=== PATIENT | female | born 1960 | race Two or more races ===

== ENCOUNTER 2018-08-09 21:03 | Emergency (ER) | payer OTHER ==
[2018-08-09 21:17] VITALS: TEMP 98.2; BMI 24.5
--- NOTE | 2018-08-09 21:18 | PDOC ---
Rapid Medical Evaluation Time Seen by Provider: 08/09/18 21:04 Medical Evaluation: Allergies Allergy/AdvReac Type Severity Reaction Status Date / Time Penicillins Allergy Verified 06/19/16 12:41 08/09/18 21:04 I have performed a brief in-person evaluation of this patient. The patient presents with a chief complaint of: dizziness with nausea Pertinent physical exam findings: No nystagmus. Lungs CTAB. Gait steady. Able to perform rapid alternating movements without difficulty. I have ordered the following: Labs, ekg, head ct The patient will proceed to the ED for further evaluation. Discharge Disposition - Referrals Referrals: Zakia Feliciano [Primary Care Provider] - - Patient Instructions - Post Discharge Activity
[2018-08-09] MEDS ORDERED: MECLIZINE HCL 25 MG TABLET (FP) PO ONE (21:20)
[2018-08-09] MEDS ORDERED: MECLIZINE HCL 25 MG TABLET (FP) ONE (21:37)
[2018-08-09 21:48] LABS: HEMOGLOBIN 13.8 GM/dL (10.7-15.3); LYMPH % 29.3 % (8-40); MCH 26.4 pg (25.7-33.7); MCHC 32.9 g/dl (32.0-36.0); MEAN CELL VOLUME 80.3 fl (80-96); MEAN PLT VOLUME 9.4 fl (7.5-11.1); MONO % 7.4 % (3.8-10.2); NEUT % 60.3 % (42.8-82.8); PLATELET COUNT 245 K/MM3 (134-434); RBC 5.23 M/mm3 (3.60-5.2); RDW 14.3 % (11.6-15.6); WHITE BLOOD COUNT 7.6 K/mm3 (4.0-10.0)
--- NOTE | 2018-08-09 21:54 | PDOC ---
History of Present Illness <Bernie Sykes - Last Filed: 08/09/18 21:54> - General History Source: Patient Exam Limitations: No Limitations - History of Present Illness Initial Comments: 08/09/18 23:18 The patient is a 57 year old female, with a significant past medical history of HTN, Asthma, Osteoarthritis, DDD, hyperlipidemia, who presents to the emergency department with, elevated blood pressure, dizziness (room spinning), and lightheadedness. As per patient, she was at work when her symptoms onset this afternoon. She tested her blood pressure and obtained a reading of 165/105. She went home and retested her blood pressure and obtained a reading of 178/115. She reports associated nausea with 3 episodes of bilious emesis. She endorses left arm numbness, slurred speech, and blurred vision prompting her visit to the ER. The patient is compliant with her at home medications. She denies any recent head trauma or loss of consciousness. She denies recent fevers or chills. She denies recent diarrhea or constipation. She denies recent dysuria, frequency, urgency or hematuria. She denies recent chest pain or shortness of breath. Allergies: Penicillins. Past surgical history: Spinal Surgery Primary Care Physician: Dr. Zakia Feliciano <Kalpana Banegas - Last Filed: 08/10/18 01:33> - General Chief Complaint: Lightheaded Stated Complaint: BLOOD PRESSURE PROBLEMS Time Seen by Provider: 08/09/18 21:04 Past History - Past Medical History Anemia: No Asthma: Yes Cancer: No Cardiac Disorders: No CVA: No COPD: No CHF: No DVT: No Dementia: No Diabetes: No GI Disorders: No Disorders: No HTN: Yes Hypercholesterolemia: Yes Liver Disease: No Psychiatric Problems: No Seizures: No Thyroid Disease: No Lung CA: No - Surgical History Abdominal Surgery: No Appendectomy: No Cardiac Surgery: No Cholecystectomy: No Lung Surgery: No Neurologic Surgery: Yes (CERVICAL LAMINECTOMY X2) Orthopedic Surgery: Yes (RIGHT CARPAL TUNNEL) - Suicide/Smoking/Psychosocial Hx Smoking Status: No Smoking History: Never smoked Have you smoked in the past 12 months: No Number of Cigarettes Smoked Daily: 0 Hx Alcohol Use: No Drug/Substance Use Hx: No Substance Use Type: None Hx Substance Use Treatment: No <Bernie Sykes - Last Filed: 08/09/18 21:54> <Kalpana Banegas - Last Filed: 08/10/18 01:33> - Past Medical History Allergies/Adverse Reactions: Allergies Allergy/AdvReac Type Severity Reaction Status Date / Time Penicillins Allergy Verified 08/09/18 21:17 Home Medications: Ambulatory Orders Albuterol 0.083% Nebulizer Aleksandra [Ventolin 0.083% Nebulizer Soln -] 1 neb NEB Q4H PRN #1 vial 04/29/15 Albuterol Sulfate Inhaler - [Ventolin HFA Inhaler -] 1 inh IH Q6H PRN #1 inh Metoprolol Tartrate [Lopressor -] 50 mg PO DAILY #30 tablet 04/29/15 Acetaminophen [Tylenol .Regular Strength -] 650 mg PO Q6H PRN #0 tablet Amlodipine Besylate [Norvasc -] 5 mg PO DAILY tablet 06/21/16 Mag Hydrox/Al Hydrox/Simeth [Mylanta Oral Suspension -] 30 ml PO Q6HPO cup Ondansetron [Zofran -] 4 mg PO TID PRN #21 tablet 06/21/16 Pantoprazole Sodium [Protonix -] 20 mg PO BID #30 tablet.ec 06/21/16 Review of Systems - Review of Systems Able to Perform ROS?: Yes Comments:: 08/09/18 23:18 +GENERAL/CONSTITUTIONAL:ELevated blood pressure. No fever or chills. No weakness. +HEAD, EYES, EARS, NOSE AND THROAT: Blurred vision. No ear pain or discharge. No sore throat. CARDIOVASCULAR: No chest pain or shortness of breath. RESPIRATORY: No cough, wheezing, or hemoptysis. +GASTROINTESTINAL: Nausea. Vomiting. No diarrhea or constipation. GENITOURINARY: No dysuria, frequency, or change in urination. MUSCULOSKELETAL: No joint or muscle swelling or pain. No neck or back pain. SKIN: No rash +NEUROLOGIC: Left arm numbness. Slurred speech. No headache, loss of consciousness, or change in strength. ENDOCRINE: No increased thirst. No abnormal weight change. HEMATOLOGIC/LYMPHATIC: No anemia, easy bleeding, or history of blood clots. ALLERGIC/IMMUNOLOGIC: No hives or skin allergy. All Other Systems: Reviewed and Negative <Kalpana Banegas - Last Filed: 08/10/18 01:33> *Physical Exam - Vital Signs Last Vital Signs Temp Pulse Resp BP Pulse Ox 98.2 F 95 H 18 135/97 98 08/09/18 21:12 08/09/18 21:12 08/09/18 21:12 08/09/18 21:12 08/09/18 21:12 <MonyBernie mann - Last Filed: 08/09/18 21:54> - Vital Signs Last Vital Signs Temp Pulse Resp BP Pulse Ox 98.2 F 95 H 18 135/97 98 08/09/18 21:12 08/09/18 21:12 08/09/18 21:12 08/09/18 21:12 08/09/18 21:12 - Physical Exam Comments: 08/10/18 01:33 GENERAL: Awake, alert, and fully oriented, in no acute distress HEAD: No signs of trauma EYES: PERRLA, EOMI, sclera anicteric, conjunctiva clear ENT: Auricles normal inspection, hearing grossly normal, nares patent, oropharynx clear without exudates. Moist mucosa NECK: Normal ROM, supple, no lymphadenopathy, JVD, or masses LUNGS: Breath sounds equal, clear to auscultation bilaterally. No wheezes, and no crackles HEART: Regular rate and rhythm, normal S1 and S2, no murmurs, rubs or gallops ABDOMEN: Soft, nontender, normoactive bowel sounds. No guarding, no rebound. No masses EXTREMITIES: Normal range of motion, no edema. No clubbing or cyanosis. No cords, erythema, or tenderness NEUROLOGICAL: ANO x3. Cranial nerves II through XII grossly intact. Normal speech,ambulatory with steady gait. SKIN: Warm, Dry, normal turgor, no rashes or lesions noted. <Kalpana Banegas - Last Filed: 08/10/18 01:33> ED Treatment Course - LABORATORY CBC & Chemistry Diagram: 08/09/18 21:39 08/09/18 21:39 - ADDITIONAL ORDERS Additional order review: 08/09/18 21:39 RBC 5.23 H MCV 80.3 MCHC 32.9 RDW 14.3 MPV 9.4 Neutrophils % 60.3 D Lymphocytes % 29.3 D Monocytes % 7.4 Eosinophils % 2.0 D Basophils % 1.0 - Medications Given in the ED: ED Medications Discontinued Medications Generic Name Dose Route Start Last Admin Trade Name Freq PRN Reason Stop Dose Admin Meclizine HCl 25 mg 08/09/18 21:20 08/09/18 21:39 Antivert - PO 08/09/18 21:21 25 mg ONCE ONE Administration <Bernie Sykes - Last Filed: 08/09/18 21:54> - LABORATORY CBC & Chemistry Diagram: 08/09/18 21:39 08/09/18 21:39 - ADDITIONAL ORDERS Additional order review: Laboratory Results 08/09/18 21:39 Sodium 138 Potassium 4.1 Chloride 105 Carbon Dioxide 30 Anion Gap 2 L BUN 8 Creatinine 0.6 Creat Clearance w eGFR > 60 Random Glucose 88 Calcium 10.2 H Total Bilirubin 0.4 AST 23 ALT 28 Alkaline Phosphatase 107 Creatine Kinase 136 Troponin I < 0.02 Total Protein 7.3 Albumin 3.9 08/09/18 21:39 RBC 5.23 H MCV 80.3 MCHC 32.9 RDW 14.3 MPV 9.4 Neutrophils % 60.3 D Lymphocytes % 29.3 D Monocytes % 7.4 Eosinophils % 2.0 D Basophils % 1.0 - Medications Given in the ED: ED Medications Discontinued Medications Generic Name Dose Route Start Last Admin Trade Name Freq PRN Reason Stop Dose Admin Meclizine HCl 25 mg 08/09/18 21:20 08/09/18 21:39 Antivert - PO 08/09/18 21:21 25 mg ONCE ONE Administration <Kalpana Banegas - Last Filed: 08/10/18 01:33> *DC/Admit/Observation/Transfer <Bernie Sykes - Last Filed: 08/09/18 21:54> - Attestations Scribe Attestion: 08/09/18 23:18 Documentation prepared by Kalpana Banegas, acting as medical coder for Bernie Sykes MD. <Kalpana Banegas - Last Filed: 08/10/18 01:33> - Referrals Referrals: Zakia Feliciano [Primary Care Provider] - - Patient Instructions - Post Discharge Activity
[2018-08-09 22:25] LABS: ALBUMIN 3.9 g/dl (3.4-5.0); ALK PHOS 107 U/L (45-117); ANION GAP 2 MMOL/L (8-16); BILIRUBIN,TOTAL 0.4 mg/dL (0.2-1); BLOOD UREA NITROGEN 8 mg/dL (7-18); CALCIUM 10.2 mg/dL (8.5-10.1); CHLORIDE 105 mmol/L (98-107); CO2 30 mmol/L (21-32); CREATININE 0.6 mg/dL (0.55-1.3); GLUCOSE,RANDOM 88 mg/dL (74-106); POTASSIUM 4.1 mmol/L (3.5-5.1); SGOT/AST 23 U/L (15-37); SGPT/ALT 28 U/L (13-61); SODIUM 138 mmol/L (136-145); TOT PROT 7.3 g/dl (6.4-8.2)
[2018-08-09 23:18] LABS: INR 1.01 (0.83-1.09); PROTHROMBIN TIME (PATIENT) 11.9 SEC (9.7-13.0)
[2018-08-09 23:46] VITALS: BP 156/94
[2018-08-10] MEDS ORDERED: ONDANSETRON 4 MG/2 ML VIAL IVPUSH ONE (00:37)
[2018-08-10 00:45] LABS: URINE APPEARANCE SLCLOUDY; URINE BILIRUBIN NEGATIVE (<2.0 mg/dL); URINE COLOR LTYELLOW; URINE GLUCOSE (UA) NEGATIVE (NEGATIVE); URINE KETONE NEGATIVE (NEGATIVE); URINE LEUK ESTERASE TRACE (NEGATIVE); URINE NITRITE NEGATIVE (NEGATIVE); URINE PROTEIN NEGATIVE (NEGATIVE); URINE UROBILINOGEN NEGATIVE mg/dL (0.2-1.0)
[2018-08-10 00:47] LABS: EPI CELLS MODERATE /HPF (FEW); URINE BACTERIA RARE /hpf (NONE SEEN); URINE MUCUS RARE
[2018-08-10] MEDS ORDERED: ONDANSETRON 4 MG/2 ML VIAL ONE (01:01)
[2018-08-10] MEDS ORDERED: SODIUM CHLORIDE 0.9% 500 ML INFUS.BAG IV ONE (01:37)
[2018-08-10] MEDS ORDERED: METOCLOPRAMIDE HCL INJECTION 10 MG/2 ML VIAL IVPUSH ONE (02:24)
[2018-08-10 02:31] VITALS: PULSE 75
[2018-08-10] MEDS ORDERED: METOCLOPRAMIDE HCL INJECTION 10 MG/2 ML VIAL ONE (02:37)
--- NOTE | 2018-08-10 04:14 | PDOC ---
*Physical Exam - Vital Signs Last Vital Signs Temp Pulse Resp BP Pulse Ox 98.2 F 75 17 156/94 97 08/09/18 21:12 08/10/18 02:28 08/10/18 02:28 08/10/18 02:28 08/10/18 02:28 ED Treatment Course - LABORATORY CBC & Chemistry Diagram: 08/09/18 21:39 08/09/18 21:39 - ADDITIONAL ORDERS Additional order review: Laboratory Results 08/10/18 08/09/18 08/09/18 00:27 21:39 21:39 PT with INR 11.90 INR 1.01 Sodium 138 Potassium 4.1 Chloride 105 Carbon Dioxide 30 Anion Gap 2 L BUN 8 Creatinine 0.6 Creat Clearance w eGFR > 60 Random Glucose 88 Calcium 10.2 H Total Bilirubin 0.4 AST 23 ALT 28 Alkaline Phosphatase 107 Creatine Kinase 136 Troponin I < 0.02 Total Protein 7.3 Albumin 3.9 Urine Color Ltyellow Urine Appearance Slcloudy Urine pH 5.0 Ur Specific [place] 1.010 Urine Protein Negative Urine Glucose (UA) Negative Urine Ketones Negative Urine Blood Negative Urine Nitrite Negative Urine Bilirubin Negative Urine Urobilinogen Negative Ur Leukocyte Esterase Trace Urine WBC (Auto) 11 Urine RBC (Auto) 0-2 Ur Epithelial Cells Moderate Urine Bacteria Rare Urine Mucus Rare 08/09/18 21:39 RBC 5.23 H MCV 80.3 MCHC 32.9 RDW 14.3 MPV 9.4 Neutrophils % 60.3 D Lymphocytes % 29.3 D Monocytes % 7.4 Eosinophils % 2.0 D Basophils % 1.0 - Medications Given in the ED: ED Medications Discontinued Medications Generic Name Dose Route Start Last Admin Trade Name Sondra PRN Reason Stop Dose Admin Meclizine HCl 25 mg 08/09/18 21:20 08/09/18 21:39 Antivert - PO 08/09/18 21:21 25 mg ONCE ONE Administration Metoclopramide HCl 10 mg 08/10/18 02:24 08/10/18 02:45 Reglan Injection - IVPUSH 08/10/18 02:25 10 mg ONCE ONE Administration Ondansetron HCl 4 mg 08/10/18 00:37 08/10/18 01:09 Zofran Injection IVPUSH 08/10/18 00:38 4 mg ONCE ONE Administration Sodium Chloride 1,000 ml 08/10/18 01:37 08/10/18 02:00 Normal Saline - IV 08/10/18 01:38 1,000 ml ONCE ONE Administration Medical Decision Making - Medical Decision Making 08/10/18 04:15 Patient Name: OFE QUINONEZ THIS IS A PRELIMINARY REPORT FROM [facility] DATE OF SERVICE: 2018-08-10 01:09:12 IMAGES: 133 Exam: CT head without IV contrast. Clinical indication:Dizziness. Comparison:None available. Technique: Axial unenhanced CT images from the skull base through the brain were obtained followed by coronal and sagital reformats. Findings: The visualized bony structures are unremarkable. The visualized paranasal sinuses and mastoid air cells are clear. There is no evidence of intra-or extra-axial hemorrhage. The ventricles and basilar cisterns are unremarkable. There is a focal area of calcification within the white matter involving the posterior aspect of the left centrum semiovale without obvious mass effect or surrounding edema. There is no evidence of intracranial mass, acute infarct, or midline shift. Impression: 1. Focal area calcification within the white matter involving the posterior left centrum semiovale. This is indeterminate, but could be associated with a vascular lesion. If clinically indicated an MRI without and with IV contrast could be performed. 2. Otherwise, negative CT of the brain. THIS DOCUMENT HAS BEEN ELECTRONICALLY SIGNED 08/10/18 04:18 Pt was given a copy of her CT head and she will follow with PMD outpatient for MRI as needed. *DC/Admit/Observation/Transfer Diagnosis at time of Disposition: Vertigo, HTN (hypertension) - Discharge Dispostion Disposition: HOME Condition at time of disposition: Improved Decision to Admit order: No - Prescriptions Prescriptions: Nitrofurantoin Monohyd/M-Cryst [Macrobid -] 100 mg PO BID #14 capsule - Referrals Referrals: Zakia Feliciano [Primary Care Provider] - Jaxon Kong DO [Staff Physician] - - Patient Instructions Printed Discharge Instructions: Recommendations to Help Prevent High Blood Pressure, Red Meat Link to Hypertension in Women Over 45 Years, Lifestyle Habits May Lower Risk of Hypertension in Women - Post Discharge Activity Forms/Work/School Notes: Back to Work
--- NOTE | 2018-08-10 16:59 | EKG ---
Test Reason : Blood Pressure : / mmHG Vent. Rate : 089 BPM Atrial Rate : 089 BPM P-R Int : 144 ms QRS Dur : 072 ms QT Int : 354 ms P-R-T Axes : 062 029 024 degrees QTc Int : 430 ms NORMAL SINUS RHYTHM CANNOT RULE OUT ANTERIOR INFARCT , AGE UNDETERMINED ABNORMAL ECG WHEN COMPARED WITH ECG OF 19-JUN-2016 13:09, NO SIGNIFICANT CHANGE WAS FOUND Confirmed by ZAFAR PRICE, STEPHANIE ([id number]) on 08/10/2018 4:59:09 PM Referred By: Confirmed By:STEPHANIE STEPHEN MD
== END 2018-08-10 04:56 | disposition home or self-care (01) ==
LOC: JER 21:03
PROC: 3E033GC Introduction of Other Therapeutic Substance into Peripheral Vein, Percutaneous Approach (ICD-10-PCS; principal; 2018-08-09)
PROC: 3E033GC Introduction of Other Therapeutic Substance into Peripheral Vein, Percutaneous Approach (ICD-10-PCS; 2018-08-09)
DX: I10 Essential (primary) hypertension (principal); E78.5 Hyperlipidemia, unspecified; J45.909 Unspecified asthma, uncomplicated; M19.90 Unspecified osteoarthritis, unspecified site
CPT/HCPCS: 36415; 70450-TC; 71046-TC-FY; 80053; 81003; 81015; 82550; 84484; 85025; 85610; 87086; 93005; 93010; 99284-25

== ENCOUNTER 2019-07-10 22:06 | Emergency (ER) | payer OTHER ==
[2019-07-10 22:16] VITALS: TEMP 97.7; BMI 25.4
--- NOTE | 2019-07-10 22:45 | PDOC ---
History of Present Illness - General Chief Complaint: Syncope/Near Syncope Stated Complaint: FALL Time Seen by Provider: 07/10/19 22:39 History Source: Patient Exam Limitations: No Limitations - History of Present Illness Initial Comments: 07/10/19 23:42 Liza Valencia is a 57F with PMH of HTN, asthma, HLD, presenting with a backwards fall from a stool. 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 Denies LOC, denies prodromal symptoms such as dizziness/weakness, says she probably hit her head, no post-ictal state. Was helped up by her colleagues and sent to ED. Denies chest pain, SOB, abd pain, leg pain, changes to vision. Has a DUKES to the left side but denies pain in her head after fall. Has history of L c-spine fusion 2006, reports having a few months or numbness in her left arm and leg in addition to the pain she currently reports. Has JULES but has not used CPAP for weeks. Denies N/V, C/D, urinary symptoms. Past History - Past Medical History Allergies/Adverse Reactions: Allergies Allergy/AdvReac Type Severity Reaction Status Date / Time Penicillins Allergy Verified 07/10/19 22:08 Home Medications: Ambulatory Orders Losartan/Hydrochlorothiazide [Losartan-Hctz 100-12.5 mg Tab] 1 each PO AC Anemia: No Asthma: Yes Cancer: No Cardiac Disorders: No CVA: No COPD: No CHF: No DVT: No Dementia: No Diabetes: No GI Disorders: No Disorders: No HTN: Yes Hypercholesterolemia: Yes Liver Disease: No Psychiatric Problems: No Seizures: No Thyroid Disease: No Lung CA: No - Surgical History Abdominal Surgery: No Appendectomy: No Cardiac Surgery: No Cholecystectomy: No Lung Surgery: No Neurologic Surgery: Yes (CERVICAL LAMINECTOMY X2) Orthopedic Surgery: Yes (RIGHT CARPAL TUNNEL) - Suicide/Smoking/Psychosocial Hx Smoking Status: No Smoking History: Never smoked Have you smoked in the past 12 months: No Number of Cigarettes Smoked Daily: 0 Hx Alcohol Use: No Drug/Substance Use Hx: No Substance Use Type: None Hx Substance Use Treatment: No Review of Systems - Review of Systems Able to Perform ROS?: Yes Is the patient limited [place] proficient: No Constitutional: Yes: Symptoms Reported. No: Chills, Fever HEENTM: No: Symptoms Reported Respiratory: No: Symptoms reported Cardiac (ROS): No: Chest Pain, Irregular Heart Rate, Palpitations, Syncope ABD/GI: No: Constipated, Diarrhea, Nausea : No: Symptoms Reported Musculoskeletal: Yes: Back Pain (back and shoulders). No: Muscle Pain, Muscle Weakness, Neck Pain Integumentary: No: Symptoms Reported Neurological: Yes: Headache, Numbness (L arm and leg). No: Tingling, Weakness, Unsteady Gait Endocrine: No: Symptoms Reported Hematologic/Lymphatic: No: Symptoms Reported All Other Systems: Reviewed and Negative *Physical Exam - Vital Signs Last Vital Signs Temp Pulse Resp BP Pulse Ox 97.7 F 88 16 165/91 100 07/10/19 22:09 07/10/19 22:09 07/10/19 22:09 07/10/19 22:09 07/10/19 22:09 - Physical Exam General Appearance: Yes: Nourished, Appropriately Dressed. No: Apparent Distress HEENT: positive: EOMI, CARRIE, Normal Voice, Symmetrical, Pharynx Normal, Hearing Grossly Normal. negative: Scleral Icterus (R), Scleral Icterus (L), Pharyngeal Erythema, Tonsillar Exudate, Tonsillar Erythema, Nasal Congestion, Excessive drooling Neck: positive: Trachea midline, Normal Thyroid, Supple. negative: Tender, Lymphadenopathy (R), Lymphadenopathy (L), Tender lateral Respiratory/Chest: positive: Lungs Clear, Normal Breath Sounds, Other. negative : Chest Tender, Respiratory Distress, Accessory Muscle Use, Crackles, Rales, Rhonchi Cardiovascular: positive: Regular Rhythm, Regular Rate, Murmur (MVP) Gastrointestinal/Abdominal: positive: Normal Bowel Sounds, Flat, Soft. negative : Tender, Organomegaly, Guarding, Rebound Musculoskeletal: positive: Normal Inspection, Other (some paraspinal tenderness to T6-T7 region). negative: CVA Tenderness, Decreased Range of Motion, Vertebral Tenderness Extremity: positive: Normal Capillary Refill, Other (Both shoulders show pain with passive abduction and extension but no signs of dislocation or bony tenderness to humerus. Full ROM at wrists and elbows, no bruising or signs of injury to arms, some tenderness to wrists.) Integumentary: positive: Normal Color, Dry, Warm Neurologic: positive: Fully Oriented, Alert, Normal Mood/Affect, Normal Response , Motor Strength 03/09 ED Treatment Course - LABORATORY CBC & Chemistry Diagram: 07/10/19 23:50 07/10/19 23:50 Medical Decision Making - Medical Decision Making 07/10/19 23:42 Liza Valencia is a 57F with PMH of HTN, asthma, HLD, presenting with a backwards fall from a stool. Patient presentation consistent with a mechanical fall backwards, low risk for severe head injury or neck injury, but patient complains of shoulder pain and found to have tenderness to both wrists and L arm, will evaluate with XR: both shoulder, both wrists/hands, L humerus. Possible syncope, patient does not report LOC, but will evaluate via: CMP CBC CP ECG CXR Treatment of pain with IVF, Ofirmev. 07/11/19 00:23 ECG NSR, HR 64, no concerning acute pathologies notable. CXR grossly normal on preliminary review. Still complaining of pain after Ofirmev, will give Toradol 30mg IV. XR of all bones no signs of fracture. No concerning findings on blood labs. Good to return home with PCP f/u and NSAIDs and RICE for likely muscular injuries. *DC/Admit/Observation/Transfer Diagnosis at time of Disposition: Fall Qualifiers: Encounter type: initial encounter Qualified Code(s): W19.XXXA - Unspecified fall, initial encounter Shoulder pain, bilateral Qualifiers: Chronicity: acute Qualified Code(s): M25.511 - Pain in right shoulder - Discharge Dispostion Disposition: HOME - Referrals Referrals: Zakia Feliciano [Primary Care Provider] - - Patient Instructions Printed Discharge Instructions: How To Perform RICE (Rest, Ice, Compress, Elevate), How to Prevent Falls Additional Instructions: Today you were evaluated for a recent fall from a stool. We got x-rays of your shoulders, left arm, and both wrists, and do not see a fracture. We obtained labs from your blood that are all normal. For pain, we gave you some IV fluids, as well as Ofirmev and Toradol. Your pain is likely coming from muscular injury to your shoulders after the fall. Please try to rest your arms and back and do not perform strenuous activities such as heavy lifting or exercises, and use ice packs and ibuprofen every 6 hours as listed on the bottle to help relieve swelling. Please see your primary care doctor in the next 3 days for further evaluation and care. Please discuss your numbness in your fingers with them at that time. If you experience worsening headache, changes to your vision, nausea, vomiting, have difficulty walking, fevers, chest pain, pain when not moving your arms or legs, or have worsening numbness/tingling to your fingers, please return to the closest emergency room. - Post Discharge Activity
[2019-07-10] MEDS ORDERED: SODIUM CHLORIDE 0.9% 500 ML INFUS.BAG IV ONE (23:03)
[2019-07-10] MEDS ORDERED: ACETAMINOPHEN 1000 MG/100 ML VIAL (NON FORMULARY) IVPB ONE (23:07)
[2019-07-10] MEDS ORDERED: ACETAMINOPHEN INJECTION 100 ML IVPB ONE (23:51)
[2019-07-10 23:58] LABS: BASO % 0.9 % (0-2.0); EOS % 1.5 % (0-4.5); HEMATOCRIT 38.5 % (32.4-45.2); HEMOGLOBIN 12.5 GM/dL (10.7-15.3); MCH 26.4 pg (25.7-33.7); MCHC 32.5 g/dl (32.0-36.0); MEAN CELL VOLUME 81.3 fl (80-96); MEAN PLT VOLUME 9.1 fl (7.5-11.1); MONO % 7.8 % (3.8-10.2); NEUT % 63.8 % (42.8-82.8); PLATELET COUNT 254 K/MM3 (134-434); RBC 4.73 M/mm3 (3.60-5.2); RDW 14.6 % (11.6-15.6); WHITE BLOOD COUNT 8.6 K/mm3 (4.0-10.0)
[2019-07-11 00:26] LABS: BILIRUBIN,TOTAL 0.4 mg/dL (0.2-1); BLOOD UREA NITROGEN 12.6 mg/dL (7-18); CALCIUM 9.9 mg/dL (8.5-10.1); CREATININE 0.7 mg/dL (0.55-1.3); POTASSIUM 3.6 mmol/L (3.5-5.1); TOT PROT 7.1 g/dl (6.4-8.2)
[2019-07-11 01:18] VITALS: BP 132/78; PULSE 80
[2019-07-11] MEDS ORDERED: KETOROLAC TROMETHAMINE 30 MG/1 ML VIAL IVPUSH ONE (01:20)
[2019-07-11] MEDS ORDERED: KETOROLAC TROMETHAMINE 30 MG/1 ML VIAL ONE (01:20)
[2019-07-11] MEDS ORDERED: LIDOCAINE 5% TOPICAL PATCH TP ONE (02:07)
[2019-07-11] MEDS ORDERED: LIDOCAINE 5% TOPICAL PATCH ONE (02:08)
--- NOTE | 2019-07-11 02:39 | PDOC ---
Attending Attestation - Resident Resident Name: Farrukh Walsh - ED Attending Attestation I have performed the following: I have examined & evaluated the patient, The case was reviewed & discussed with the resident, I agree w/resident's findings & plan, Exceptions are as noted - HPI HPI: 07/11/19 02:38 58F mechanical fall off a stool towards her back/left side. +headache px to L side, +aching pain to shoulders, back, bilateral wrists. No preceding symptoms , aura. Denies loc, amnesia, nausea. - Physicial Exam PE: 07/11/19 02:39 Agree with exam as documented by resident - Medical Decision Making 07/11/19 02:40 Mechanical fall off of stool analgesia f/u xr, ekg imaging w/o evidence of acute bony injury dc
--- NOTE | 2019-07-11 14:02 | EKG ---
Test Reason : Blood Pressure : / mmHG Vent. Rate : 064 BPM Atrial Rate : 064 BPM P-R Int : 160 ms QRS Dur : 082 ms QT Int : 418 ms P-R-T Axes : 017 020 006 degrees QTc Int : 431 ms NORMAL SINUS RHYTHM CANNOT RULE OUT ANTERIOR INFARCT (CITED ON OR BEFORE 09-AUG-2018) ABNORMAL ECG WHEN COMPARED WITH ECG OF 09-AUG-2018 21:15, NO SIGNIFICANT CHANGE WAS FOUND Confirmed by DALJIT FREEMAN MD ([id number]) on 07/11/2019 2:02:13 PM Referred By: Confirmed By:DALJIT FREEMAN MD
[2019-07-11] MEDS ORDERED: LIDOCAINE PATCH REMOVAL MC SCH (22:00)
== END 2019-07-11 02:49 | disposition home or self-care (01) ==
LOC: JER 22:06
PROC: 3E033NZ Introduction of Analgesics, Hypnotics, Sedatives into Peripheral Vein, Percutaneous Approach (ICD-10-PCS; principal; 2019-07-10)
PROC: 3E0333Z Introduction of Anti-inflammatory into Peripheral Vein, Percutaneous Approach (ICD-10-PCS; 2019-07-10)
PROC: 3E0337Z Introduction of Electrolytic and Water Balance Substance into Peripheral Vein, Percutaneous Approach (ICD-10-PCS; 2019-07-10)
DX: M25.511 Pain in right shoulder (principal); W18.39XA Other fall on same level, initial encounter; Y93.89 Activity, other specified; Y92.89 Other specified places as the place of occurrence of the external cause; I10 Essential (primary) hypertension; E78.5 Hyperlipidemia, unspecified; J45.909 Unspecified asthma, uncomplicated
CPT/HCPCS: 36415; 71045-TC-FY; 73030-TC-LT-FY; 73030-TC-RT-FY; 73060-TC-LT-FY; 73110-TC-LT-FY; 73110-TC-RT-FY; 73130-TC-LT-FY; 73130-TC-RT-FY; 80053; 82550; 82553; 84484; 85025; 93005; 93010; 99284-25; J0131

== ENCOUNTER 2022-01-15 14:08 | Inpatient (IN) | payer OTHER ==
[2022-01-15 14:37] VITALS: BMI 26.6
[2022-01-15] MEDS ORDERED: ACETAMINOPHEN 500 MG TABLET (FP) PO ONE (14:40)
[2022-01-15] MEDS ORDERED: ACETAMINOPHEN 325 MG TABLET (FP) ONE (14:42)
[2022-01-15] MEDS ORDERED: LACTATED RINGERS SOLUTION 1000 ML INFUS.BAG IV ONE (14:57)
[2022-01-15 15:03] LABS: BASO % 0.8 % (0-2.0); EOS % 0.3 % (0-4.5); HEMATOCRIT 40.8 % (32.4-45.2); HEMOGLOBIN 13.8 GM/dL (10.7-15.3); LYMPH % 12.9 % (8-40); MCH 26.5 pg (25.7-33.7); MCHC 33.8 g/dl (32.0-36.0); MEAN CELL VOLUME 78.5 fl (80-96); MEAN PLT VOLUME 8.5 fl (7.5-11.1); MONO % 8.6 % (3.8-10.2); NEUT % 77.4 % (42.8-82.8); PLATELET COUNT 299 10^3/uL (134-434); RDW 14.4 % (11.6-15.6)
[2022-01-15 15:16] LABS: INR 1.26 (0.83-1.09); PROTHROMBIN TIME (PATIENT) 14.5 SEC (9.7-13.0)
[2022-01-15 15:19] LABS: ACTIVATED PTT 33.3 SECONDS (25.2-36.5)
[2022-01-15 15:24] LABS: CALCIUM 10.1 mg/dL (8.5-10.1)
[2022-01-15 15:25] LABS: ALBUMIN 3.8 g/dl (3.4-5.0); BLOOD UREA NITROGEN 14.2 mg/dL (7-18)
[2022-01-15 15:29] LABS: TOT PROT 7.5 g/dl (6.4-8.2)
[2022-01-15 15:30] LABS: ANISOCYTOSIS 2+; BILIRUBIN,TOTAL 0.7 mg/dL (0.2-1); MACROCYTOSIS 0
[2022-01-15] MEDS ORDERED: PIPERACILLIN/TAZOB 4.5 GM 4.5 GM in DEXTROSE 5%-WATER 100 ML IVPB ONE (16:48)
[2022-01-15] MEDS ORDERED: PIPERACILLIN/TAZOB 3.375 GM 3.375 GM/50 ML BAG IVPB ONE (16:52)
[2022-01-15] MEDS ORDERED: morphine CARPU-JECT 4 MG/1 ML DISP.SYRIN IVPUSH ONE (17:01)
[2022-01-15 17:12] LABS: EPI CELLS 14 /uL (0-25.1); HYALINE CASTS 2 /uL (0-3.1); URINE APPEARANCE CLEAR; URINE BACTERIA 539 /uL (0-1359); URINE BILIRUBIN NEGATIVE (NEGATIVE); URINE COLOR YELLOW; URINE GLUCOSE (UA) NEGATIVE (NEGATIVE); URINE KETONE NEGATIVE (NEGATIVE); URINE LEUK ESTERASE 1+ (NEGATIVE); URINE NITRITE NEGATIVE (NEGATIVE); URINE PROTEIN NEGATIVE (NEGATIVE); URINE RBC 47 /uL (0-23.9); URINE UROBILINOGEN 0.2 mg/dL (0.2-1.0); URINE WBC 222 /uL (0-25.8)
[2022-01-15] MEDS ORDERED: morphine SULFATE 4 MG/ML VIAL ONE (17:12)
[2022-01-15] MEDS ORDERED: PATIENT'S OWN MEDICATION (NON-FORMULARY) (Losartan/Hydrochlorothiazide [Losartan-Hctz 100- PO SCH (20:15)
[2022-01-15] MEDS: HEPARIN NA (PORCINE) 5,000 UNITS/ML 1ML VIAL SQ SCH (23:37)
[2022-01-16 07:30] LABS: BASO % 0.7 % (0-2.0); EOS % 1.5 % (0-4.5); HEMATOCRIT 36.9 % (32.4-45.2); HEMOGLOBIN 12.5 GM/dL (10.7-15.3); LYMPH % 17.1 % (8-40); MCH 26.6 pg (25.7-33.7); MCHC 33.9 g/dl (32.0-36.0); MEAN CELL VOLUME 78.4 fl (80-96); MEAN PLT VOLUME 8.6 fl (7.5-11.1); NEUT % 72.7 % (42.8-82.8); PLATELET COUNT 259 10^3/uL (134-434); RDW 14.6 % (11.6-15.6); WHITE BLOOD COUNT 9.4 K/mm3 (4.0-10.0)
[2022-01-16 07:47] LABS: CALCIUM 9.1 mg/dL (8.5-10.1)
[2022-01-16 07:48] LABS: ALBUMIN 3.2 g/dl (3.4-5.0); BLOOD UREA NITROGEN 13.5 mg/dL (7-18)
[2022-01-16 07:51] LABS: CREATININE 0.8 mg/dL (0.55-1.3)
[2022-01-16 07:52] LABS: BILIRUBIN,TOTAL 0.7 mg/dL (0.2-1); TOT PROT 6.5 g/dl (6.4-8.2)
[2022-01-16] MEDS ORDERED: CEFTRIAXONE 1 GM in DEXTROSE 5%-WATER - 50 ML IVPB SCH (10:00)
[2022-01-16] MEDS ORDERED: cefTRIAXone SODIUM 1 GM VIAL ONE ×2 (10:29→14:04)
[2022-01-16] MEDS ORDERED: DEXTROSE 5%-WATER - 50 ML IVPB ONE ×2 (10:29→14:05)
[2022-01-16] MEDS: HYDROCHLOROTHIAZIDE 12.5 MG CAPSULE (FP) PO SCH (10:34)
[2022-01-16] MEDS: PANTOPRAZOLE 20 MG TABLET PO SCH (10:34)
[2022-01-16] MEDS: LOSARTAN POTASSIUM 50 MG TABLET PO SCH (10:35)
[2022-01-16] MEDS ORDERED: KCL 10 MEQ IVPB 10 MEQ/100 ML INFUS.BAG IVPB SCH (10:45)
[2022-01-16] MEDS: HEPARIN NA (PORCINE) 5,000 UNITS/ML 1ML VIAL SQ SCH ×2 (12:27→21:23)
[2022-01-16] MEDS ORDERED: CEFTRIAXONE 1 GM in DEXTROSE 5%-WATER - 50 ML IVPB ONE (13:12)
[2022-01-16] MEDS: POTASSIUM CHLORIDE 10 MEQ in SODIUM CHLORIDE 1,000 ML IV SCH (18:39)
[2022-01-16] MEDS: MELATONIN 5 MG TABLETS PO PRN (22:09)
[2022-01-17] MEDS: POTASSIUM CHLORIDE 10 MEQ in SODIUM CHLORIDE 1,000 ML IV SCH (05:11)
[2022-01-17 08:29] LABS: BASO % 0.9 % (0-2.0); EOS % 0.9 % (0-4.5); HEMATOCRIT 34.9 % (32.4-45.2); HEMOGLOBIN 11.6 GM/dL (10.7-15.3); MCH 26.3 pg (25.7-33.7); MCHC 33.3 g/dl (32.0-36.0); MEAN CELL VOLUME 79.1 fl (80-96); MONO % 8.2 % (3.8-10.2); PLATELET COUNT 280 10^3/uL (134-434); RBC 4.41 M/mm3 (3.60-5.2); RDW 14.5 % (11.6-15.6); WHITE BLOOD COUNT 8.8 K/mm3 (4.0-10.0)
[2022-01-17 08:47] LABS: CALCIUM 8.9 mg/dL (8.5-10.1)
[2022-01-17 08:48] LABS: BLOOD UREA NITROGEN 17.1 mg/dL (7-18)
[2022-01-17 08:51] LABS: CREATININE 0.7 mg/dL (0.55-1.3)
[2022-01-17 08:53] LABS: BILIRUBIN,TOTAL 0.7 mg/dL (0.2-1)
[2022-01-17] MEDS ORDERED: DEXTROSE 5%-WATER 100 ML IVPB ONE (09:06)
[2022-01-17] MEDS: CEFTRIAXONE 2 GM in DEXTROSE 5%-WATER 100 ML IVPB SCH (09:23)
[2022-01-17] MEDS: HYDROCHLOROTHIAZIDE 12.5 MG CAPSULE (FP) PO SCH (09:23)
[2022-01-17] MEDS: LOSARTAN POTASSIUM 50 MG TABLET PO SCH (09:23)
[2022-01-17] MEDS: HEPARIN NA (PORCINE) 5,000 UNITS/ML 1ML VIAL SQ SCH ×2 (09:23→21:27)
[2022-01-17] MEDS: PANTOPRAZOLE 20 MG TABLET PO SCH (09:23)
[2022-01-17] MEDS ORDERED: POTASSIUM CHLORIDE 20 MEQ in SODIUM CHLORIDE 1,000 ML IV SCH (09:45)
[2022-01-17] MEDS ORDERED: POTASSIUM CHLORIDE ORAL LIQUID 20 MEQ/15 ML PO ONE (09:45)
[2022-01-17] MEDS ORDERED: SODIUM CHLORIDE 0.9%/KCL 20 MEQ/1,000 ML INFUS.BAG IV SCH (10:09)
[2022-01-17] MEDS: SODIUM CHLORIDE 0.9%/KCL 20 MEQ/1,000 ML INFUS.BAG IV SCH ×2 (11:20→23:10)
[2022-01-17] MEDS: ACETAMINOPHEN 1000 MG/100 ML BAG IVPB PRN (21:26)
[2022-01-17] MEDS: MELATONIN 5 MG TABLETS PO PRN (21:27)
[2022-01-18 08:25] LABS: BASO % 0.8 % (0-2.0); EOS % 1.2 % (0-4.5); HEMATOCRIT 36.1 % (32.4-45.2); HEMOGLOBIN 11.7 GM/dL (10.7-15.3); LYMPH % 19.4 % (8-40); MCH 26.1 pg (25.7-33.7); MCHC 32.3 g/dl (32.0-36.0); MEAN CELL VOLUME 80.7 fl (80-96); MEAN PLT VOLUME 8.8 fl (7.5-11.1); MONO % 8.8 % (3.8-10.2); NEUT % 69.8 % (42.8-82.8); PLATELET COUNT 302 10^3/uL (134-434); RBC 4.47 M/mm3 (3.60-5.2); RDW 14.9 % (11.6-15.6); WHITE BLOOD COUNT 7.1 K/mm3 (4.0-10.0)
[2022-01-18 08:48] LABS: ALBUMIN 2.9 g/dl (3.4-5.0); BLOOD UREA NITROGEN 12.3 mg/dL (7-18)
[2022-01-18] MEDS ORDERED: DEXTROSE 5%-WATER 100 ML IVPB ONE (08:49)
[2022-01-18 08:51] LABS: CREATININE 0.6 mg/dL (0.55-1.3)
[2022-01-18 08:53] LABS: TOT PROT 6.2 g/dl (6.4-8.2)
[2022-01-18 08:55] LABS: BILIRUBIN,TOTAL 0.6 mg/dL (0.2-1)
[2022-01-18] MEDS: PANTOPRAZOLE 20 MG TABLET PO SCH (09:01)
[2022-01-18] MEDS: CEFTRIAXONE 2 GM in DEXTROSE 5%-WATER 100 ML IVPB SCH (09:01)
[2022-01-18] MEDS: HEPARIN NA (PORCINE) 5,000 UNITS/ML 1ML VIAL SQ SCH ×2 (09:01→21:29)
[2022-01-18] MEDS: HYDROCHLOROTHIAZIDE 12.5 MG CAPSULE (FP) PO SCH (09:01)
[2022-01-18] MEDS: ACETAMINOPHEN 1000 MG/100 ML BAG IVPB PRN ×2 (09:11→21:31)
[2022-01-18] MEDS: LOSARTAN POTASSIUM 50 MG TABLET PO SCH ×2 (09:11→10:00)
[2022-01-18] MEDS: SODIUM CHLORIDE 0.9%/KCL 20 MEQ/1,000 ML INFUS.BAG IV SCH (18:14)
[2022-01-18] MEDS: ZOLPIDEM TARTRATE 5 MG TABLET PO PRN (21:45)
[2022-01-19] MEDS: SODIUM CHLORIDE 0.9%/KCL 20 MEQ/1,000 ML INFUS.BAG IV SCH ×3 (00:12→22:53)
[2022-01-19 08:38] LABS: BASO % 1.2 % (0-2.0); EOS % 1.4 % (0-4.5); HEMATOCRIT 35.8 % (32.4-45.2); LYMPH % 17.4 % (8-40); MCH 26.8 pg (25.7-33.7); MCHC 33.4 g/dl (32.0-36.0); MEAN CELL VOLUME 80.3 fl (80-96); MEAN PLT VOLUME 8.5 fl (7.5-11.1); MONO % 8.9 % (3.8-10.2); NEUT % 71.1 % (42.8-82.8); PLATELET COUNT 291 10^3/uL (134-434); RBC 4.46 M/mm3 (3.60-5.2); RDW 15.1 % (11.6-15.6); WHITE BLOOD COUNT 8.2 K/mm3 (4.0-10.0)
[2022-01-19 09:04] LABS: CALCIUM 9.3 mg/dL (8.5-10.1)
[2022-01-19 09:05] LABS: ALBUMIN 3.3 g/dl (3.4-5.0); BLOOD UREA NITROGEN 8.4 mg/dL (7-18)
[2022-01-19 09:08] LABS: CREATININE 0.6 mg/dL (0.55-1.3)
[2022-01-19 09:09] LABS: TOT PROT 6.6 g/dl (6.4-8.2)
[2022-01-19 09:10] LABS: BILIRUBIN,TOTAL 0.5 mg/dL (0.2-1)
[2022-01-19] MEDS ORDERED: DEXTROSE 5%-WATER 100 ML IVPB ONE (10:06)
[2022-01-19] MEDS: HEPARIN NA (PORCINE) 5,000 UNITS/ML 1ML VIAL SQ SCH ×2 (10:18→21:47)
[2022-01-19] MEDS: LOSARTAN POTASSIUM 50 MG TABLET PO SCH (10:18)
[2022-01-19] MEDS: CEFTRIAXONE 2 GM in DEXTROSE 5%-WATER 100 ML IVPB SCH (10:19)
[2022-01-19] MEDS: ACETAMINOPHEN 1000 MG/100 ML BAG IVPB PRN (14:47)
[2022-01-19] MEDS: ACETAMINOPHEN 325 MG TABLET (FP) PO PRN (22:20)
[2022-01-19] MEDS: ZOLPIDEM TARTRATE 5 MG TABLET PO PRN (22:20)
[2022-01-20] MEDS: SODIUM CHLORIDE 0.9%/KCL 20 MEQ/1,000 ML INFUS.BAG IV SCH ×2 (03:10→11:12)
[2022-01-20] MEDS: ACETAMINOPHEN 1000 MG/100 ML BAG IVPB PRN (06:12)
[2022-01-20] MEDS: HEPARIN NA (PORCINE) 5,000 UNITS/ML 1ML VIAL SQ SCH ×2 (09:54→22:42)
[2022-01-20] MEDS: LOSARTAN POTASSIUM 50 MG TABLET PO SCH (09:55)
[2022-01-20] MEDS: ACETAMINOPHEN 325 MG TABLET (FP) PO PRN (11:12)
[2022-01-20] MEDS ORDERED: MULTIVIT INJ. ADULT COMBO WITH VIT K 1 COMBO 10 ML VIAL IV SCH (14:00)
[2022-01-20] MEDS ORDERED: POTASSIUM CHLORIDE 20 MEQ in AMINO ACIDS 4.25%/D5W 1,000 ML IV SCH (14:00)
[2022-01-20] MEDS: ERTAPENEM SODIUM 1 GM in SODIUM CHLORIDE 50 ML IVPB SCH (14:44)
[2022-01-20] MEDS: diphenhydrAMINE HCL 25 MG CAPSULE (FP) PO PRN ×2 (15:19→22:42)
[2022-01-20] MEDS ORDERED: FAT EMULSION/OLIVE/SOY (CLINOLIPID) 250 ML EMULSION IV SCH (22:00)
[2022-01-20] MEDS: ZOLPIDEM TARTRATE 5 MG TABLET PO PRN (22:42)
[2022-01-20] MEDS: FAT EMULSION/OLIVE/SOY/PHOSPHO 250 ML IV SCH (22:51)
[2022-01-21] MEDS: diphenhydrAMINE HCL 25 MG CAPSULE (FP) PO PRN ×2 (09:24→22:12)
[2022-01-21] MEDS: HEPARIN NA (PORCINE) 5,000 UNITS/ML 1ML VIAL SQ SCH ×2 (09:25→22:12)
[2022-01-21] MEDS: LOSARTAN POTASSIUM 50 MG TABLET PO SCH (09:25)
[2022-01-21 10:06] LABS: BASO % 1.2 % (0-2.0); EOS % 2.9 % (0-4.5); HEMATOCRIT 39.5 % (32.4-45.2); HEMOGLOBIN 13.2 GM/dL (10.7-15.3); LYMPH % 23.6 % (8-40); MCH 26.4 pg (25.7-33.7); MCHC 33.6 g/dl (32.0-36.0); MEAN CELL VOLUME 78.7 fl (80-96); MEAN PLT VOLUME 9.1 fl (7.5-11.1); MONO % 9.5 % (3.8-10.2); NEUT % 62.8 % (42.8-82.8); PLATELET COUNT 388 10^3/uL (134-434); RBC 5.02 M/mm3 (3.60-5.2); WHITE BLOOD COUNT 6.2 K/mm3 (4.0-10.0)
[2022-01-21 10:16] LABS: ALBUMIN 3.6 g/dl (3.4-5.0); BLOOD UREA NITROGEN 7.6 mg/dL (7-18)
[2022-01-21 10:18] LABS: CREATININE 0.7 mg/dL (0.55-1.3)
[2022-01-21 10:20] LABS: BILIRUBIN,TOTAL 0.7 mg/dL (0.2-1)
[2022-01-21] MEDS: ERTAPENEM SODIUM 1 GM in SODIUM CHLORIDE 50 ML IVPB SCH (10:47)
[2022-01-21] MEDS: FAT EMULSION/OLIVE/SOY/PHOSPHO 250 ML IV SCH (22:11)
[2022-01-21] MEDS: ZOLPIDEM TARTRATE 5 MG TABLET PO PRN (22:12)
[2022-01-21] MEDS: HYDROCORTISONE 1% TOPICAL CREAM 30 GM TUBE TP PRN (22:12)
[2022-01-22] MEDS: AMINO ACIDS 4.25%/D5W 1,000 ML IV SCH (03:21)
[2022-01-22 09:16] LABS: BASO % 1.2 % (0-2.0); EOS % 2.8 % (0-4.5); HEMATOCRIT 39.6 % (32.4-45.2); HEMOGLOBIN 13.5 GM/dL (10.7-15.3); LYMPH % 27.8 % (8-40); MCHC 34.1 g/dl (32.0-36.0); MEAN CELL VOLUME 79.1 fl (80-96); MEAN PLT VOLUME 9.6 fl (7.5-11.1); MONO % 8.8 % (3.8-10.2); NEUT % 59.4 % (42.8-82.8); PLATELET COUNT 415 10^3/uL (134-434); RDW 15.4 % (11.6-15.6); WHITE BLOOD COUNT 6.2 K/mm3 (4.0-10.0)
[2022-01-22 09:36] LABS: BLOOD UREA NITROGEN 6.3 mg/dL (7-18); CALCIUM 9.4 mg/dL (8.5-10.1); CREATININE 0.7 mg/dL (0.55-1.3)
[2022-01-22 09:38] LABS: ALBUMIN 3.5 g/dl (3.4-5.0)
[2022-01-22 09:39] LABS: BILIRUBIN,TOTAL 0.4 mg/dL (0.2-1); TOT PROT 7.3 g/dl (6.4-8.2)
[2022-01-22] MEDS: HEPARIN NA (PORCINE) 5,000 UNITS/ML 1ML VIAL SQ SCH (10:50)
[2022-01-22] MEDS: ERTAPENEM SODIUM 1 GM in SODIUM CHLORIDE 50 ML IVPB SCH ×3 (10:51→14:46)
[2022-01-22] MEDS: LOSARTAN POTASSIUM 50 MG TABLET PO SCH (10:51)
[2022-01-22] MEDS: diphenhydrAMINE HCL 25 MG CAPSULE (FP) PO PRN (20:30)
[2022-01-22] MEDS: FAT EMULSION/OLIVE/SOY/PHOSPHO 250 ML IV SCH (21:58)
[2022-01-22] MEDS: ZOLPIDEM TARTRATE 5 MG TABLET PO PRN (21:58)
[2022-01-22] MEDS: HYDROCORTISONE 1% TOPICAL CREAM 30 GM TUBE TP PRN (21:59)
[2022-01-23] MEDS: AMINO ACIDS 4.25%/D5W 1,000 ML IV SCH (05:00)
[2022-01-23 10:21] LABS: HEMATOCRIT 36.6 % (32.4-45.2); HEMOGLOBIN 12.7 GM/dL (10.7-15.3); MCH 27.2 pg (25.7-33.7); MCHC 34.6 g/dl (32.0-36.0); MEAN CELL VOLUME 78.6 fl (80-96); MEAN PLT VOLUME 8.8 fl (7.5-11.1); PLATELET COUNT 354 10^3/uL (134-434); RBC 4.65 M/mm3 (3.60-5.2); RDW 14.8 % (11.6-15.6); WHITE BLOOD COUNT 7.9 K/mm3 (4.0-10.0)
[2022-01-23] MEDS: ERTAPENEM SODIUM 1 GM in SODIUM CHLORIDE 50 ML IVPB SCH (10:28)
[2022-01-23] MEDS: LOSARTAN POTASSIUM 50 MG TABLET PO SCH (10:28)
[2022-01-23 11:15] LABS: BLOOD UREA NITROGEN 8.1 mg/dL (7-18)
[2022-01-23 11:17] LABS: CALCIUM 9.7 mg/dL (8.5-10.1)
[2022-01-23 11:18] LABS: ALBUMIN 3.3 g/dl (3.4-5.0)
[2022-01-23 11:21] LABS: CREATININE 0.6 mg/dL (0.55-1.3)
[2022-01-23 11:22] LABS: BILIRUBIN,TOTAL 0.3 mg/dL (0.2-1); TOT PROT 6.4 g/dl (6.4-8.2)
[2022-01-23] MEDS ORDERED: ALPRAZolam 0.25 MG TABLET PO ONE (19:00)
[2022-01-23] MEDS: FAT EMULSION/OLIVE/SOY/PHOSPHO 250 ML IV SCH (21:44)
[2022-01-23] MEDS: ALPRAZolam 0.25 MG TABLET PO SCH (22:21)
[2022-01-24] MEDS: AMINO ACIDS 4.25%/D5W 1,000 ML IV SCH ×2 (02:00→12:27)
[2022-01-24] MEDS: ALPRAZolam 0.25 MG TABLET PO SCH ×3 (06:04→21:21)
[2022-01-24 09:15] LABS: EOS % 1.6 % (0-4.5); HEMATOCRIT 35.5 % (32.4-45.2); HEMOGLOBIN 12.4 GM/dL (10.7-15.3); LYMPH % 20.3 % (8-40); MCH 27.1 pg (25.7-33.7); MCHC 34.8 g/dl (32.0-36.0); MEAN CELL VOLUME 78.1 fl (80-96); MEAN PLT VOLUME 8.4 fl (7.5-11.1); MONO % 6.3 % (3.8-10.2); NEUT % 70.8 % (42.8-82.8); PLATELET COUNT 343 10^3/uL (134-434); RBC 4.55 M/mm3 (3.60-5.2); RDW 14.9 % (11.6-15.6); WHITE BLOOD COUNT 8.4 K/mm3 (4.0-10.0)
[2022-01-24 09:36] LABS: CHLORIDE 105 mmol/L (98-107); SODIUM 140 mmol/L (136-145)
[2022-01-24 09:41] LABS: CALCIUM 9.3 mg/dL (8.5-10.1)
[2022-01-24 09:42] LABS: ALBUMIN 3.1 g/dl (3.4-5.0); ANION GAP 6 MMOL/L (8-16); BLOOD UREA NITROGEN 9.3 mg/dL (7-18); CO2 29 mmol/L (21-32); GLUCOSE,RANDOM 103 mg/dL (74-106)
[2022-01-24 09:44] LABS: BILIRUBIN,DIRECT < 0.1 mg/dL (0.0-0.2); CREATININE 0.7 mg/dL (0.55-1.3)
[2022-01-24 09:45] LABS: SGOT/AST 57 U/L (15-37); SGPT/ALT 90 U/L (13-61)
[2022-01-24 09:46] LABS: BILIRUBIN,TOTAL 0.3 mg/dL (0.2-1)
[2022-01-24 09:48] LABS: ALK PHOS 70 U/L (45-117)
[2022-01-24 09:54] LABS: TOT PROT 6.2 g/dl (6.4-8.2)
[2022-01-24 09:55] LABS: BLOOD UREA NITROGEN 8.7 mg/dL (7-18)
[2022-01-24 09:58] LABS: CREATININE 0.7 mg/dL (0.55-1.3)
[2022-01-24] MEDS: LOSARTAN POTASSIUM 50 MG TABLET PO SCH (10:18)
[2022-01-24] MEDS: ERTAPENEM SODIUM 1 GM in SODIUM CHLORIDE 50 ML IVPB SCH (10:19)
[2022-01-24] MEDS: FAT EMULSION/OLIVE/SOY/PHOSPHO 250 ML IV SCH (21:52)
[2022-01-25] MEDS: AMINO ACIDS 4.25%/D5W 1,000 ML IV SCH (00:48)
[2022-01-25] MEDS: ALPRAZolam 0.25 MG TABLET PO SCH ×3 (06:22→21:29)
[2022-01-25] MEDS: LOSARTAN POTASSIUM 50 MG TABLET PO SCH (09:13)
[2022-01-25] MEDS: ERTAPENEM SODIUM 1 GM in SODIUM CHLORIDE 50 ML IVPB SCH (10:42)
[2022-01-25] MEDS: HEPARIN NA (PORCINE) 5,000 UNITS/ML 1ML VIAL SQ SCH (21:29)
[2022-01-25] MEDS: ZOLPIDEM TARTRATE 5 MG TABLET PO PRN (21:36)
[2022-01-26] MEDS: ALPRAZolam 0.25 MG TABLET PO SCH ×3 (06:20→21:18)
[2022-01-26 08:23] LABS: BASO % 0.7 % (0-2.0); EOS % 1.7 % (0-4.5); HEMATOCRIT 33.9 % (32.4-45.2); HEMOGLOBIN 11.5 GM/dL (10.7-15.3); LYMPH % 18.5 % (8-40); MCH 26.9 pg (25.7-33.7); MEAN CELL VOLUME 79.3 fl (80-96); MONO % 7.7 % (3.8-10.2); NEUT % 71.4 % (42.8-82.8); PLATELET COUNT 283 10^3/uL (134-434); RBC 4.28 M/mm3 (3.60-5.2); RDW 14.8 % (11.6-15.6); WHITE BLOOD COUNT 8.7 K/mm3 (4.0-10.0)
[2022-01-26 08:46] LABS: CALCIUM 9.2 mg/dL (8.5-10.1)
[2022-01-26 08:47] LABS: BLOOD UREA NITROGEN 9.5 mg/dL (7-18)
[2022-01-26 08:50] LABS: CREATININE 0.6 mg/dL (0.55-1.3)
[2022-01-26 08:51] LABS: BILIRUBIN,TOTAL 0.4 mg/dL (0.2-1)
[2022-01-26] MEDS: ERTAPENEM SODIUM 1 GM in SODIUM CHLORIDE 50 ML IVPB SCH (09:45)
[2022-01-26] MEDS: LOSARTAN POTASSIUM 50 MG TABLET PO SCH (09:45)
[2022-01-26] MEDS: HEPARIN NA (PORCINE) 5,000 UNITS/ML 1ML VIAL SQ SCH ×2 (09:45→21:18)
[2022-01-26] MEDS: ZOLPIDEM TARTRATE 5 MG TABLET PO PRN (21:32)
[2022-01-27] MEDS: ALPRAZolam 0.25 MG TABLET PO SCH ×2 (06:22→14:15)
[2022-01-27] MEDS: LOSARTAN POTASSIUM 50 MG TABLET PO SCH (09:30)
[2022-01-27] MEDS: HEPARIN NA (PORCINE) 5,000 UNITS/ML 1ML VIAL SQ SCH (09:31)
[2022-01-27] MEDS: ERTAPENEM SODIUM 1 GM in SODIUM CHLORIDE 50 ML IVPB SCH (09:31)
[2022-01-27 14:29] VITALS: BP 133/77; PULSE 85; TEMP 99.7
== END 2022-01-27 17:42 | disposition home health service (06) | DRG 392 ==
LOC: JER 14:08 → JERBED 16:54 → J6S 01-16 01:39 → J5S 01-19 18:52 → J6S 01-19 22:02
PROVIDERS: ADMIT Internal Medicine; ATTEND Internal Medicine
PROC: 02HV33Z Insertion of Infusion Device into Superior Vena Cava, Percutaneous Approach (ICD-10-PCS; principal; 2022-01-27)
PROC: B518ZZA Fluoroscopy of Superior Vena Cava, Guidance (ICD-10-PCS; 2022-01-27)
DX: K57.20 Diverticulitis of large intestine with perforation and abscess without bleeding (principal); J45.909 Unspecified asthma, uncomplicated; E78.00 Pure hypercholesterolemia, unspecified; K59.00 Constipation, unspecified; I10 Essential (primary) hypertension; K21.9 Gastro-esophageal reflux disease without esophagitis; M54.50 Low back pain, unspecified; R55 Syncope and collapse; D72.829 Elevated white blood cell count, unspecified; M19.90 Unspecified osteoarthritis, unspecified site; R42 Dizziness and giddiness; R21 Rash and other nonspecific skin eruption; G62.9 Polyneuropathy, unspecified; F41.9 Anxiety disorder, unspecified; G47.00 Insomnia, unspecified; Z87.442 Personal history of urinary calculi; Z88.0 Allergy status to penicillin; Z86.010 Personal history of colon polyps; Z80.0 Family history of malignant neoplasm of digestive organs
CPT/HCPCS: 36415; 36569; 71045-TC-FY; 71275-TC; 74176-TC; 74177-TC; 80048; 80053; 80076; 81003; 84484; 85025; 85027; 85610; 85730; 86140; 86850; 86900; 86901; 87040; 87086; 93005; 93010; 93971-TC; 99285-25; C9803-CS; J1644; Q9967; U0003; U0005

== ENCOUNTER 2023-04-15 10:43 | Emergency (ER) | payer OTHER ==
[2023-04-15 10:54] VITALS: RESP 18; BMI 26.6
[2023-04-15] MEDS ORDERED: MECLIZINE HCL 25 MG TABLET (FP) PO ONE (11:13)
[2023-04-15] MEDS ORDERED: SODIUM CHLORIDE 0.9% 500 ML INFUS.BAG IV ONE ×2 (11:13→14:02)
[2023-04-15 11:28] LABS: BASO % 0.6 % (0-2.0); EOS % 0.4 % (0-4.5); HEMATOCRIT 41.5 % (32.4-45.2); HEMOGLOBIN 13.7 GM/dL (10.7-15.3); LYMPH % 14.2 % (8-40); MCH 26.3 pg (25.7-33.7); MEAN CELL VOLUME 79.5 fl (80-96); MEAN PLT VOLUME 8.9 fl (7.5-11.1); MONO % 5.5 % (3.8-10.2); NEUT % 79.3 % (42.8-82.8); PLATELET COUNT 250 10^3/uL (134-434); RBC 5.22 M/mm3 (3.60-5.2); WHITE BLOOD COUNT 10.7 K/mm3 (4.0-10.0)
[2023-04-15 11:33] LABS: INR 1.1 (0.83-1.09); PROTHROMBIN TIME (PATIENT) 12.7 SEC (9.7-13.0)
[2023-04-15 11:36] LABS: ACTIVATED PTT 36.9 SECONDS (25.2-36.5)
[2023-04-15 11:56] LABS: POTASSIUM 3.6 mmol/L (3.5-5.1)
[2023-04-15 11:57] LABS: CALCIUM 9.7 mg/dL (8.5-10.1)
[2023-04-15 11:58] LABS: ALBUMIN 4.2 g/dl (3.4-5.0)
[2023-04-15 12:00] LABS: BLOOD UREA NITROGEN 12.5 mg/dL (7-18)
[2023-04-15 12:01] LABS: CREATININE 0.7 mg/dL (0.55-1.3)
[2023-04-15 12:03] LABS: TOT PROT 7.4 g/dl (6.4-8.2)
[2023-04-15 12:05] LABS: BILIRUBIN,TOTAL 0.6 mg/dL (0.2-1)
[2023-04-15] MEDS ORDERED: MECLIZINE HCL 25 MG TABLET (FP) ONE (12:24)
[2023-04-15] MEDS ORDERED: METOCLOPRAMIDE HCL INJECTION 10 MG/2 ML VIAL IVPUSH ONE (14:02)
[2023-04-15] MEDS ORDERED: KETOROLAC TROMETHAMINE 15 MG/ML VIAL IVPUSH ONE (14:10)
[2023-04-15] MEDS ORDERED: ACETAMINOPHEN 1000 MG/100 ML BAG IVPB ONE (14:10)
[2023-04-15] MEDS ORDERED: KETOROLAC TROMETHAMINE 15 MG/ML VIAL ONE (14:13)
[2023-04-15] MEDS ORDERED: METOCLOPRAMIDE HCL INJECTION 10 MG/2 ML VIAL ONE (14:13)
[2023-04-15] MEDS ORDERED: ACETAMINOPHEN INJECTION 100 ML IVPB ONE (14:13)
[2023-04-15 16:04] VITALS: BP 136/93; PULSE 71; TEMP 98
== END 2023-04-15 16:33 | disposition home or self-care (01) ==
LOC: JER 10:43
PROC: 3E033NZ Introduction of Analgesics, Hypnotics, Sedatives into Peripheral Vein, Percutaneous Approach (ICD-10-PCS; principal; 2023-04-15)
PROC: 3E0333Z Introduction of Anti-inflammatory into Peripheral Vein, Percutaneous Approach (ICD-10-PCS; 2023-04-15)
PROC: 3E033GC Introduction of Other Therapeutic Substance into Peripheral Vein, Percutaneous Approach (ICD-10-PCS; 2023-04-15)
DX: R42 Dizziness and giddiness (principal); R20.2 Paresthesia of skin; I10 Essential (primary) hypertension; H57.89 Other specified disorders of eye and adnexa
CPT/HCPCS: 36415; 70450-TC; 70496-TC; 70498-TC; 71045-TC-FY; 80053; 80061; 82550; 82962; 83036; 83735; 84484; 85025; 85610; 85730; 86850; 86900; 86901; 93005; 93010; 99291

== ENCOUNTER 2025-07-04 11:19 | Observation (INO) | payer OTHER ==
[2025-07-04] MEDS ORDERED: KETOROLAC TROMETHAMINE 30 MG/1 ML VIAL ONE (12:16)
[2025-07-04] MEDS: KETOROLAC TROMETHAMINE 30 MG/1 ML VIAL IM ONE (12:32)
[2025-07-04 12:36] LABS: MCHC 31.8 g/dl (32.2-35.5); MEAN CELL VOLUME 82.2 fl (79.4-94.8); MEAN PLT VOLUME 10.8 fl (9.4-12.3); RDW 13.7 % (12.4-16.4)
[2025-07-04 12:51] LABS: GLUCOSE,RANDOM 95.0 mg/dL (74-106)
[2025-07-04 12:52] LABS: TOT PROT 7.5 g/dl (6.4-8.2)
[2025-07-04 12:53] LABS: CO2 25.0 mmol/L (21-32)
[2025-07-04 12:54] LABS: ALK PHOS 101.0 U/L (40-150)
[2025-07-04 12:57] LABS: CREATININE 0.74 mg/dL (0.55-1.3); SGOT/AST 22.0 U/L (5-34); SGPT/ALT 17.0 U/L (0-55)
[2025-07-04 13:17] LABS: HCV DIAGNOSTIC IN-HOUSE W/RFLX NON-REACTIVE (NONREACTIVE)
[2025-07-04 13:18] LABS: HIV INTERPRETATION NEGATIVE (NEGATIVE)
[2025-07-04] MEDS ORDERED: ACETAMINOPHEN 325 MG TABLET (FP) PO PRN (16:18)
[2025-07-04 19:51] VITALS: BMI 25.5
[2025-07-04] MEDS: LIDOCAINE PATCH REMOVAL MC SCH (21:12)
[2025-07-04] MEDS: GABAPENTIN 300 MG CAPSULE PO SCH (21:12)
[2025-07-04] MEDS: ATORVASTATIN CA 10 MG TABLET (FP) PO SCH (21:12)
[2025-07-04] MEDS: LIDOCAINE 5% TOPICAL PATCH TP SCH (21:12)
[2025-07-05] MEDS: KETOROLAC TROMETHAMINE 15 MG/ML VIAL IVPUSH PRN (05:51)
[2025-07-05] MEDS: TRIMETHOBENZAMIDE HCL 200MG/2ML INJ IM ONE (06:36)
[2025-07-05] MEDS: ACETAMINOPHEN 500 MG TABLET (FP) PO SCH (10:08)
[2025-07-05] MEDS: LOSARTAN POTASSIUM 50 MG TABLET PO SCH (10:08)
[2025-07-05] MEDS: ENOXAPARIN NA (PORCINE) 40 MG/0.4 ML DISP.SYRIN SQ SCH (10:15)
[2025-07-05] MEDS: FAMOTIDINE 20 MG TABLET PO SCH (10:21)
[2025-07-05] MEDS: CELECOXIB 200 MG CAPSULE PO SCH (10:22)
[2025-07-05] MEDS: DEXAMETHASONE SOD PHOSPHATE 4 MG/1 ML VIAL IVPUSH ONE (11:33)
[2025-07-05] MEDS: GABAPENTIN 400 MG CAPSULE PO SCH (13:17)
[2025-07-05] MEDS: SENNOSIDES 8.6MG TABLET (FP) PO PRN (22:07)
[2025-07-05] MEDS: BISACODYL 10 MG SUPP.RECT PR PRN (22:07)
[2025-07-06] MEDS: morphine CARPU-JECT 2 MG/1 ML DISP.SYRIN IVPUSH ONE (06:41)
[2025-07-06 08:11] LABS: MCHC 31.4 g/dl (32.2-35.5); MEAN CELL VOLUME 81.8 fl (79.4-94.8); MEAN PLT VOLUME 11.2 fl (9.4-12.3); RDW 13.5 % (12.4-16.4)
[2025-07-06 08:28] LABS: GLUCOSE,RANDOM 101.0 mg/dL (74-106); TOT PROT 6.7 g/dl (6.4-8.2)
[2025-07-06 08:29] LABS: CO2 23.0 mmol/L (21-32)
[2025-07-06 08:30] LABS: ALK PHOS 109.0 U/L (40-150)
[2025-07-06 08:33] LABS: SGOT/AST 23.0 U/L (5-34); SGPT/ALT 16.0 U/L (0-55)
[2025-07-06 08:34] LABS: CREATININE 0.77 mg/dL (0.55-1.3)
[2025-07-06] MEDS: LIDOCAINE PATCH REMOVAL MC SCH (09:34)
[2025-07-06] MEDS: DEXAMETHASONE SOD PHOSPHATE 10 MG/1 ML VIAL IVPUSH SCH (11:58)
[2025-07-07] MEDS: LORazepam 4 MG/1 ML VIAL IVPUSH ONE ×2 (06:03→10:22)
[2025-07-07 07:34] LABS: ABSOLUTE IMMATURE GRANULOCYTES 0.12 x10^3/uL (0.0-0.031); BASOPHILS # 0.03 x10^3/uL (0.01-0.08); EOSINOPHIL % 0.1 % (0.7-5.8); EOSINOPHILS # 0.01 x10^3/uL (0.04-0.36); MCHC 32.0 g/dl (32.2-35.5); MEAN CELL VOLUME 81.6 fl (79.4-94.8); MEAN PLT VOLUME 11.8 fl (9.4-12.3); MONOCYTE # 0.86 x10^3/uL (0.24-0.86); MONOCYTE % 5.5 % (4.7-12.5); RDW 13.8 % (12.4-16.4)
[2025-07-07 08:26] LABS: GLUCOSE,RANDOM 78.0 mg/dL (74-106)
[2025-07-07 08:27] LABS: CO2 24.0 mmol/L (21-32)
[2025-07-07 08:32] LABS: CREATININE 0.88 mg/dL (0.55-1.3)
[2025-07-07] MEDS ORDERED: LORazepam 2 MG/ML SDV VIAL IVPUSH ONE (11:30)
[2025-07-07] MEDS: LORazepam 2 MG/ML SDV VIAL IVPUSH ONE (19:02)
[2025-07-08 17:39] LABS: ABSOLUTE IMMATURE GRANULOCYTES 0.22 x10^3/uL (0.0-0.031); BASOPHILS # 0.06 x10^3/uL (0.01-0.08); EOSINOPHIL % 0.3 % (0.7-5.8); EOSINOPHILS # 0.04 x10^3/uL (0.04-0.36); MCHC 31.2 g/dl (32.2-35.5); MEAN CELL VOLUME 82.1 fl (79.4-94.8); MEAN PLT VOLUME 11.4 fl (9.4-12.3); MONOCYTE # 0.89 x10^3/uL (0.24-0.86); MONOCYTE % 7.4 % (4.7-12.5); RDW 14.1 % (12.4-16.4)
[2025-07-08 18:36] LABS: GLUCOSE,RANDOM 112.0 mg/dL (74-106); TOT PROT 6.3 g/dl (6.4-8.2)
[2025-07-08 18:37] LABS: CO2 24.0 mmol/L (21-32)
[2025-07-08 18:38] LABS: ALK PHOS 98.0 U/L (40-150)
[2025-07-08 18:42] LABS: CREATININE 0.87 mg/dL (0.55-1.3); SGOT/AST 21.0 U/L (5-34); SGPT/ALT 22.0 U/L (0-55)
[2025-07-08] MEDS: LIDOCAINE HCL 2% (20ML MULTI-DOSE VIAL) NR ONE (19:42)
[2025-07-08] MEDS: TRIAMCINOLONE ACET 40MG/1ML VIAL IM ONE (19:42)
[2025-07-08] MEDS: KETOROLAC TROMETHAMINE 30 MG/1 ML VIAL IM ONE (19:43)
[2025-07-09 05:44] VITALS: RESP 18; TEMP 98.1
[2025-07-09 08:24] LABS: ABSOLUTE IMMATURE GRANULOCYTES 0.16 x10^3/uL (0.0-0.031); BASOPHILS # 0.09 x10^3/uL (0.01-0.08); EOSINOPHIL % 0.9 % (0.7-5.8); EOSINOPHILS # 0.10 x10^3/uL (0.04-0.36); MCHC 31.0 g/dl (32.2-35.5); MEAN CELL VOLUME 82.6 fl (79.4-94.8); MEAN PLT VOLUME 11.1 fl (9.4-12.3); MONOCYTE # 1.02 x10^3/uL (0.24-0.86); MONOCYTE % 9.1 % (4.7-12.5); RDW 14.1 % (12.4-16.4)
[2025-07-09 09:11] LABS: GLUCOSE,RANDOM 78.0 mg/dL (74-106)
[2025-07-09 09:12] LABS: TOT PROT 6.5 g/dl (6.4-8.2)
[2025-07-09 09:13] LABS: CO2 26.0 mmol/L (21-32)
[2025-07-09 09:15] LABS: ALK PHOS 84.0 U/L (40-150)
[2025-07-09 09:17] LABS: SGOT/AST 24.0 U/L (5-34); SGPT/ALT 21.0 U/L (0-55)
[2025-07-09 09:18] LABS: CREATININE 0.89 mg/dL (0.55-1.3)
[2025-07-09 16:08] VITALS: BP 134/64; PULSE 87
== END 2025-07-09 16:00 | disposition home or self-care (01) ==
LOC: JER 11:19 → UNDOADMOB 16:02 → INTOOBSV 16:02 → JERBED 16:02 → J6S 19:13
PROVIDERS: ADMIT Student in an Organized Health Care Education/Training Program; ATTEND Internal Medicine
PROC: 3E033GC Introduction of Other Therapeutic Substance into Peripheral Vein, Percutaneous Approach (ICD-10-PCS; principal; 2025-07-04)
PROC: 3E0333Z Introduction of Anti-inflammatory into Peripheral Vein, Percutaneous Approach (ICD-10-PCS; 2025-07-04)
PROC: 3E0233Z Introduction of Anti-inflammatory into Muscle, Percutaneous Approach (ICD-10-PCS; 2025-07-04)
DX: M51.35 Other intervertebral disc degeneration, thoracolumbar region (principal); G95.89 Other specified diseases of spinal cord; I16.0 Hypertensive urgency; E78.5 Hyperlipidemia, unspecified; J45.909 Unspecified asthma, uncomplicated; K59.00 Constipation, unspecified; F41.9 Anxiety disorder, unspecified; D72.829 Elevated white blood cell count, unspecified; M70.62 Trochanteric bursitis, left hip; M19.90 Unspecified osteoarthritis, unspecified site; Z98.1 Arthrodesis status; M54.16 Radiculopathy, lumbar region; M54.50 Low back pain, unspecified; Z88.0 Allergy status to penicillin
CPT/HCPCS: 36415; 70551-TC; 71045-TC-FY; 72125-TC; 72128-TC; 72131-TC; 72141-TC; 72146-TC; 72148-TC; 80048; 80053; 83735; 84100; 84484; 85025; 85027; 86803; 87389; 93005; 93010; 97116-GP; 99285-25; G0378; J1100